=== PATIENT | female | born 1985 | race Caucasian/White ===

== ENCOUNTER 2018-04-21 17:29 | Inpatient (IN) | payer OTHER ==
[2018-04-21] MEDS ORDERED: Sodium Chloride 0.9% 2.5 ML Syringe FLUSH PRN (17:56)
[2018-04-21] MEDS ORDERED: Nalbuphine 10 MG/1 ML Vial IVPUSH PRN (17:56)
[2018-04-21] MEDS ORDERED: Butorphanol 1 MG/ML SDV IVPUSH PRN (17:56)
[2018-04-21] MEDS ORDERED: Misoprostol 200 MCG Tab PO PRN (17:56)
[2018-04-21] MEDS ORDERED: Tranexamic Acid 1,000 MG in Sodium Chloride 0.9% 100 ML IV PRN (17:56)
[2018-04-21] MEDS ORDERED: Lidocaine 1% 50 ML MDV INJECT PRN (17:56)
[2018-04-21] MEDS ORDERED: Carboprost Tromethamine 250 MCG/1 ML Amp IM PRN (17:56)
[2018-04-21] MEDS ORDERED: Methylergonovine 0.2 MG/1 ML Amp IM PRN (17:56)
[2018-04-21] MEDS ORDERED: Water For Irrigation,Sterile 1,000 ML Container IRR PRN (17:56)
[2018-04-21] MEDS ORDERED: Sodium Chloride 0.9% 10 ML Syringe FLUSH PRN (17:56)
[2018-04-21] MEDS ORDERED: Lactated Ringers 1,000 ML IV SCH (18:00)
[2018-04-21] MEDS ORDERED: Oxytocin/0.9 % Sodium Chloride 30 UNIT/500 ML BAG IV SCH (18:00)
[2018-04-21] MEDS ORDERED: Simethicone 80 MG Tab.Chew PO PRN (20:05)
[2018-04-21] MEDS ORDERED: Bisacodyl 10 MG Supp RECTAL PRN (20:05)
[2018-04-21] MEDS ORDERED: Ibuprofen 400 MG Tab PO PRN (20:05)
[2018-04-21] MEDS ORDERED: Aluminum Hydroxide/Magnesium Hydroxide/Simethicone Susp 30 ML Cup PO PRN (20:05)
[2018-04-21] MEDS ORDERED: Benzocaine/Menthol 20%-0.5% Spray 78 GM Cannister TOP PRN (20:05)
[2018-04-21] MEDS ORDERED: oxyCODONE 5 MG Tab PO PRN (20:05)
[2018-04-21] MEDS ORDERED: Ibuprofen 800 MG Tab PO PRN (20:05)
[2018-04-21] MEDS ORDERED: Docusate Sodium 100 MG Cap PO PRN (20:05)
[2018-04-21] MEDS ORDERED: Acetaminophen 500 MG Tab PO PRN ×2 (20:05)
[2018-04-21] MEDS ORDERED: Witch Hazel Medicated Pads 40/Jar TOP PRN (20:05)
[2018-04-21] MEDS ORDERED: Lanolin 100% Cream 7 GM Tube TOP PRN (20:05)
--- NOTE | 2018-04-22 06:59 | PCM.PNPP ---
- General Info Date of Service: 04/22/18 Functional Status: Reports: Pain Controlled, Tolerating Diet, Ambulating, Urinating - Review of Systems General: Denies: Fever, Weakness Cardiovascular: Denies: Chest Pain, Palpitations, Lightheadedness Gastrointestinal: Reports: Flatus. Denies: Abdominal Pain, Diarrhea, Nausea Genitourinary: Denies: Flank Pain Neurological: Reports: No Symptoms Psychiatric: Reports: No Symptoms - General Info Date of Service: 04/22/18 - Patient Data Vital Signs - Most Recent: Last Vital Signs Temp 36.4 C 04/22/18 04:00 Pulse 85 04/22/18 04:00 Resp 16 04/22/18 04:00 BP 121/65 04/22/18 04:00 Pulse Ox 95 04/22/18 04:00 Weight - Most Recent: 90.718 kg Lab Results - Last 24 Hours: Laboratory Results - last 24 hr 04/21/18 04/21/18 04/22/18 Range/Units 18:07 18:07 04:45 WBC 28.75 H (4.0-11.0) K/uL RBC 4.42 (4.30-5.90) M/uL Hgb 14.5 12.7 (12.0-16.0) g/dL Hct 39.5 35.8 L (36.0-46.0) % MCV 89.4 (80.0-98.0) fL MCH 32.8 H (27.0-32.0) pg MCHC 36.7 (31.0-37.0) g/dL RDW Std Deviation 43.1 (28.0-62.0) fl RDW Coeff of [place] 13 (11.0-15.0) % Plt Count 209 (150-400) K/uL MPV 9.40 (7.40-12.00) fL Nucleated RBC % 0.0 /100WBC Nucleated RBCs # 0 K/uL Blood Type A POSITIVE Antibody Screen NEGATIVE Med Orders - Current: Current Medications Acetaminophen (Tylenol Extra Strength) 500 mg PO Q4H PRN PRN Reason: Pain Acetaminophen (Tylenol Extra Strength) 1,000 mg PO Q4H PRN PRN Reason: Pain Al Hydroxide/Mg Hydroxide (Mag-Al Plus) 30 ml PO Q8H PRN PRN Reason: Heartburn Benzocaine/Menthol (Dermoplast Pain Relief 20%-0.5% [place]) 78 gm TOP ASDIRECTED PRN PRN Reason: Perineal Comfort Measure Bisacodyl (Dulcolax) 10 mg RECTAL .ONCE PRN PRN Reason: Constipation Carboprost Tromethamine (Hemabate Ds) 250 mcg IM ASDIRECTED PRN PRN Reason: Post Hemorrhage Docusate Sodium (Colace) 100 mg PO BID PRN PRN Reason: Constipation Emollient Ointment (Lansinoh Hpa) 0 gm TOP ASDIRECTED PRN PRN Reason: Sore Nipples Lactated Ringer's (Ringers, Lactated) 1,000 mls @ 150 mls/hr IV ASDIRECTED FLORINDA Oxytocin/Sodium Chloride (Oxytocin 30 Unit/500 Ml-Ns) 30 unit in 500 mls @ 500 mls/hr IV TITRATE FLORINDA Tranexamic Acid 1,000 mg/ (Sodium Chloride) 110 mls @ 660 mls/hr IV ONETIME PRN PRN Reason: Bleeding Ibuprofen (Motrin) 400 mg PO Q4H PRN PRN Reason: Pain Ibuprofen (Motrin) 800 mg PO Q6H PRN PRN Reason: Pain Last Admin: 04/21/18 20:21 Dose: 800 mg Lidocaine HCl (Xylocaine 1%) 50 ml INJECT .ONCE PRN PRN Reason: Laceration repair Last Admin: 04/21/18 19:47 Dose: 50 ml Methylergonovine Maleate (Methergine) 0.2 mg IM ASDIRECTED PRN PRN Reason: Post Hemorrhage Oxycodone HCl (Oxycodone) 5 mg PO Q2H PRN PRN Reason: Pain Simethicone (Simethicone) 80 mg PO Q4H PRN PRN Reason: Gas Sodium Chloride (Saline Flush) 10 ml FLUSH ASDIRECTED PRN PRN Reason: Keep Vein Open Sodium Chloride (Saline Flush) 2.5 ml FLUSH ASDIRECTED PRN PRN Reason: Keep Vein Open Sterile Water (Sterile Water For Irrigation) 1,000 ml IRR ASDIRECTED PRN PRN Reason: delivery Last Admin: 04/21/18 19:47 Dose: 1,000 ml Witch Diana (Tucks) 1 pad TOP ASDIRECTED PRN PRN Reason: comfort care Discontinued Medications Butorphanol Tartrate (Stadol) 1 mg IVPUSH Q1H PRN PRN Reason: Pain Misoprostol (Cytotec) 200 mcg PO .ONCE PRN PRN Reason: Post Hemorrhage Nalbuphine HCl (Nubain) 10 mg IVPUSH Q1H PRN PRN Reason: Pain (severe 7-10) - Interaction Support Person: , Sister - Recovery Exam Fundal Tone: Firm Fundal Level: 1 Fingerbreadths Below Umbilicus Fundal Placement: Midline Lochia Amount: Small Lochia Color: Rubra/Red Perineum Description: Intact, Minimal Bruising/Swelling Episiotomy/Laceration: Approximated Bladder Status: Voiding Urinary Elimination: Voided - Exam General: Alert, Oriented Lungs: Normal Respiratory Effort Cardiovascular: Regular Rate, Regular Rhythm GI/Abdominal Exam: Normal Bowel Sounds, Soft, Non-Tender Skin: Warm, Dry, Intact Psy/Mental Status: Alert, Normal Affect - Problem List & Annotations (1) Vaginal delivery SNOMED Code(s): 351475881 Code(s): O80 - ENCOUNTER FOR FULL-TERM UNCOMPLICATED DELIVERY Status: Acute Current Visit: Yes - Problem List Review Problem List Initiated/Reviewed/Updated: Yes - My Orders Last 24 Hours: My Active Orders 04/21/18 17:56 Patient Status [ADT] Routine Heart Tones [RC] CONTINUOUS Non Stress Test [RC] PER UNIT ROUTINE Vaginal Exam [RC] PRN Vital Signs [RC] PER UNIT ROUTINE Carboprost Tromethamine [Hemabate DS] 250 mcg IM ASDIRECTED PRN Lidocaine 1% [Xylocaine 1%] 50 ml INJECT .ONCE PRN Methylergonovine [Methergine] 0.2 mg IM ASDIRECTED PRN Sodium Chloride 0.9% [Saline Flush] 10 ml FLUSH ASDIRECTED PRN Sodium Chloride 0.9% [Saline Flush] 2.5 ml FLUSH ASDIRECTED PRN Tranexamic Acid [Cyklokapron] 1,000 mg Sodium Chloride 0.9% [Normal Saline] 100 ml IV ONETIME Water For Irrigation,Sterile [Sterile Water for Irrigation] 1,000 ml IRR ASDIRECTED PRN Peripheral IV Insertion Adult [OM.PC] Routine Resuscitation Status Routine 04/21/18 18:00 Lactated Ringers [Ringers, Lactated] 1,000 ml IV ASDIRECTED Oxytocin/0.9 % Sodium Chloride [Oxytocin 30 Unit/500 ML-NS] 30 unit in 500 ml IV TITRATE 04/21/18 20:05 Patient Status [ADT] Routine May Shower [RC] ASDIRECTED Up ad Carlyn [RC] ASDIRECTED Vital Signs [RC] PER UNIT ROUTINE Acetaminophen [Tylenol Extra Strength] 1,000 mg PO Q4H PRN Acetaminophen [Tylenol Extra Strength] 500 mg PO Q4H PRN Alum Hydrox/Mag Hydrox/Simeth [Mag-Al Plus] 30 ml PO Q8H PRN Benzocaine/Menthol [Dermoplast Pain Relief 20%-0.5% [place]] 78 gm TOP ASDIRECTED PRN Bisacodyl [Dulcolax] 10 mg RECTAL .ONCE PRN Docusate Sodium [Colace] 100 mg PO BID PRN Ibuprofen [Motrin] 400 mg PO Q4H PRN Ibuprofen [Motrin] 800 mg PO Q6H PRN Lanolin [Lansinoh HPA] See Dose Instructions TOP ASDIRECTED PRN Simethicone 80 mg PO Q4H PRN Witch Diana [Tucks] 1 pad TOP ASDIRECTED PRN oxyCODONE 5 mg PO Q2H PRN Assess Lochia [WOMSER] Per Unit Routine Assess Uterine Involution [WOMSER] Per Unit Routine Peripheral IV Discontinue [OM.PC] Routine 04/21/18 20:06 Ice Therapy [OM.PC] Per Unit Routine Perineal Care [OM.PC] Per Unit Routine Sitz Bath [OM.PC] Per Unit Routine 04/21/18 Dinner Regular Diet [DIET] - Assessment Assessment:: PPD 1 status post - Plan Plan:: Continue cares, working with . Infant is on an initial course of iv antibiotics. Patient was febrile x 1 directly after delivery last night and has remained afebrile since.
--- NOTE | 2018-04-22 09:33 | OR ---
SURGEON: Svetlana Pineda M.D. DATE OF PROCEDURE: 04/21/2018 PREOPERATIVE DIAGNOSES: 1. 38 and 4 week intrauterine . 2. Active labor. POSTOPERATIVE DIAGNOSES: 1. 38 and 4 week intrauterine . 2. Active labor. PROCEDURE PERFORMED: Spontaneous vaginally first-degree midline laceration repaired. ANESTHESIA: Local. ESTIMATED BLOOD LOSS: 300 mL. FINDINGS: Term female, score 7 at 1 minute, eight at 5 minute. Weight of 3440 g. Spontaneous delivery, intact placenta, 3-vessel cord. DISPOSITION: to nursery, mom in LDRP, stable. PROCEDURE DETAILS: Bette is a 32-year-old, G1, P0, at 38 and 4 weeks' gestational age, who presents with regular contractions since noon and leakage of large amount of clear fluid at 4:38 p.m. Upon presentation to Labor and Delivery, she was found to be 7 cm, regina every 1 to 3 minutes and breathing through her contractions. She quickly progressed to complete, including the urge to push, called for delivery. Upon my arrival, the patient was placed in modified dorsal position, prepped in the usual aseptic manner and began pushing effort and pushed readily. She was already a +3 station. She pushed to +4 station and was able to deliver 's head atraumatically, spontaneously, followed by anterior shoulder push, remaining body without difficulty. The 's oropharynx and nares bulb suctioned. Cord clamped x2 and cut. was handed off to her mother, attending nursing staff at her side. Cord arterial, cord venous, cord blood samples were obtained. Light pressure was applied while the placenta was delivered spontaneously intact. Vigorous fundal uterine massage was then applied while 30 units of Pitocin was delivered in 500 mL of fluid. Upon inspection of cervix vaginal sidewall, and perineum, there was found to be a first-degree left labial and first-degree midline laceration that was repaired using 3-0 Polysorb in the usual fashion. After prepping the regions with 1% lidocaine, total approximately 12 mL of 1% lidocaine was utilized. The patient tolerated the repair well. Hemostasis appeared evident. Sponge count and needle counts were correct. The patient remained in LDRP, to nursery. After placenta was delivered, the patient's temperature was 101.3. We will dose her with Motrin and monitor this. This is the first fever she has had. ZA / JESUS /[id number]
--- NOTE | 2018-04-23 17:00 | PCM.PNPP ---
- General Info Date of Service: 04/23/18 Functional Status: Reports: Pain Controlled, Tolerating Diet, Ambulating, Urinating - Review of Systems General: Reports: No Symptoms HEENT: Reports: No Symptoms Pulmonary: Reports: No Symptoms Cardiovascular: Reports: No Symptoms Gastrointestinal: Reports: No Symptoms Genitourinary: Reports: No Symptoms Musculoskeletal: Reports: No Symptoms Skin: Reports: No Symptoms Neurological: Reports: No Symptoms Psychiatric: Reports: No Symptoms - General Info Date of Service: 04/23/18 - Patient Data Vital Signs - Most Recent: Last Vital Signs Temp 37.4 C 04/23/18 15:15 Pulse 92 04/23/18 15:15 Resp 15 04/23/18 15:15 BP 125/87 04/23/18 15:15 Pulse Ox 97 04/23/18 15:15 Weight - Most Recent: 90.718 kg Med Orders - Current: Current Medications Acetaminophen (Tylenol Extra Strength) 500 mg PO Q4H PRN PRN Reason: Pain Acetaminophen (Tylenol Extra Strength) 1,000 mg PO Q4H PRN PRN Reason: Pain Al Hydroxide/Mg Hydroxide (Mag-Al Plus) 30 ml PO Q8H PRN PRN Reason: Heartburn Benzocaine/Menthol (Dermoplast Pain Relief 20%-0.5% [place]) 78 gm TOP ASDIRECTED PRN PRN Reason: Perineal Comfort Measure Last Admin: 04/22/18 11:03 Dose: 1 canister Bisacodyl (Dulcolax) 10 mg RECTAL .ONCE PRN PRN Reason: Constipation Carboprost Tromethamine (Hemabate Ds) 250 mcg IM ASDIRECTED PRN PRN Reason: Post Hemorrhage Docusate Sodium (Colace) 100 mg PO BID PRN PRN Reason: Constipation Emollient Ointment (Lansinoh Hpa) 0 gm TOP ASDIRECTED PRN PRN Reason: Sore Nipples Lactated Ringer's (Ringers, Lactated) 1,000 mls @ 150 mls/hr IV ASDIRECTED FLORINDA Oxytocin/Sodium Chloride (Oxytocin 30 Unit/500 Ml-Ns) 30 unit in 500 mls @ 500 mls/hr IV TITRATE FLORINDA Tranexamic Acid 1,000 mg/ (Sodium Chloride) 110 mls @ 660 mls/hr IV ONETIME PRN PRN Reason: Bleeding Ibuprofen (Motrin) 400 mg PO Q4H PRN PRN Reason: Pain Ibuprofen (Motrin) 800 mg PO Q6H PRN PRN Reason: Pain Last Admin: 04/21/18 20:21 Dose: 800 mg Lidocaine HCl (Xylocaine 1%) 50 ml INJECT .ONCE PRN PRN Reason: Laceration repair Last Admin: 04/21/18 19:47 Dose: 50 ml Methylergonovine Maleate (Methergine) 0.2 mg IM ASDIRECTED PRN PRN Reason: Post Hemorrhage Oxycodone HCl (Oxycodone) 5 mg PO Q2H PRN PRN Reason: Pain Simethicone (Simethicone) 80 mg PO Q4H PRN PRN Reason: Gas Sodium Chloride (Saline Flush) 10 ml FLUSH ASDIRECTED PRN PRN Reason: Keep Vein Open Sodium Chloride (Saline Flush) 2.5 ml FLUSH ASDIRECTED PRN PRN Reason: Keep Vein Open Sterile Water (Sterile Water For Irrigation) 1,000 ml IRR ASDIRECTED PRN PRN Reason: delivery Last Admin: 04/21/18 19:47 Dose: 1,000 ml Witch Diana (Tucks) 1 pad TOP ASDIRECTED PRN PRN Reason: comfort care Discontinued Medications Butorphanol Tartrate (Stadol) 1 mg IVPUSH Q1H PRN PRN Reason: Pain Misoprostol (Cytotec) 200 mcg PO .ONCE PRN PRN Reason: Post Hemorrhage Nalbuphine HCl (Nubain) 10 mg IVPUSH Q1H PRN PRN Reason: Pain (severe 7-10) - Infant Interaction Disposition, : in Room with Family Infant Interaction: Holding Feeding: Breastfed Infant; Nursed Well Support Person: , Sister - Recovery Exam Fundal Tone: Firm Fundal Level: 2 Fingerbreadths Below Umbilicus Fundal Placement: Midline Lochia Amount: Small Lochia Color: Rubra/Red Perineum Description: Intact, Minimal Bruising/Swelling Other Perinuem Description: 1st degree laceration Episiotomy/Laceration: Approximated Bladder Status: Palpable Urinary Elimination: Voided - Exam General: Alert, Oriented, Cooperative, No Acute Distress Lungs: Clear to Auscultation, Normal Respiratory Effort Cardiovascular: Regular Rate, Regular Rhythm, No Murmurs GI/Abdominal Exam: Soft, Non-Tender Extremities: Normal Range of Motion, Non-Tender Skin: Warm, Dry, Intact Wound/Incisions: Healing Well Neurological: No New Focal Deficit, Normal Gait, Normal Speech, Normal Tone Psy/Mental Status: Alert, Normal Affect, Normal Mood - Problem List & Annotations (1) Vaginal delivery SNOMED Code(s): 266023817 Code(s): O80 - ENCOUNTER FOR FULL-TERM UNCOMPLICATED DELIVERY Status: Acute Priority: High Current Visit: Yes - Problem List Review Problem List Initiated/Reviewed/Updated: Yes - Assessment Assessment:: PPD 1 status post PPD 2 status post - Plan Plan:: Continue cares, working with . is on an initial course of iv antibiotics. Patient was febrile x 1 directly after delivery last night and has remained afebrile since. P: Discharge home. will need to stay in due to TTN and antibiotics.
== END 2018-04-23 19:05 | disposition home or self-care (01) | DRG 775 ==
LOC: MW.OBCHECK 17:29 → MW.OB 17:30 → MW.OBCHECK 17:56 → OBSVTOIN 19:29 → MW.OB 22:00
PROVIDERS: ADMIT Obstetrics & Gynecology; ATTEND Obstetrics & Gynecology
PROC: 10E0XZZ Delivery of Products of Conception, External Approach (ICD-10-PCS; principal; 2018-04-21)
PROC: 0HQ9XZZ Repair Perineum Skin, External Approach (ICD-10-PCS; 2018-04-21)
DX: O42.02 Full-term premature rupture of membranes, onset of labor within 24 hours of rupture (principal); O70.0 First degree perineal laceration during delivery; Z3A.38 38 weeks gestation of pregnancy; Z37.0 Single live birth
CPT/HCPCS: 36415; 59025; 59409; 85014; 85018; 85027; 86850; 86900; 86901; A9270-GY

== ENCOUNTER 2020-02-29 19:39 | Inpatient (IN) | payer OTHER ==
[2020-02-29] MEDS ORDERED: Sodium Chloride 0.9% 10 ML Syringe FLUSH PRN (20:41)
[2020-02-29] MEDS ORDERED: Nalbuphine 10 MG/1 ML Vial IVPUSH PRN (20:41)
[2020-02-29] MEDS ORDERED: Misoprostol 200 MCG Tab PO PRN (20:41)
[2020-02-29] MEDS ORDERED: Water For Irrigation,Sterile 1,000 ML Container IRR PRN (20:41)
[2020-02-29] MEDS ORDERED: Lidocaine 1% 50 ML MDV INJECT PRN (20:41)
[2020-02-29] MEDS ORDERED: Butorphanol 1 MG/ML SDV IVPUSH PRN (20:41)
[2020-02-29] MEDS ORDERED: Tranexamic Acid 1,000 MG in Sodium Chloride 0.9% 100 ML IV PRN ×2 (20:41→22:41)
[2020-02-29] MEDS ORDERED: Sodium Chloride 0.9% 10 ML SDV IV PRN (20:41)
[2020-02-29] MEDS ORDERED: Sodium Chloride 0.9% 2.5 ML Syringe FLUSH PRN (20:41)
[2020-02-29] MEDS ORDERED: Methylergonovine 0.2 MG/1 ML Amp IM PRN ×2 (20:41→22:41)
[2020-02-29] MEDS ORDERED: Carboprost Tromethamine 250 MCG/1 ML Amp IM PRN (20:41)
[2020-02-29] MEDS ORDERED: Lactated Ringers 1,000 ML IV SCH (20:45)
[2020-02-29] MEDS ORDERED: Oxytocin/0.9 % Sodium Chloride 30 UNIT/500 ML BAG IV SCH (20:45)
--- NOTE | 2020-02-29 22:38 | PCM.DEL ---
L & D Note - General Info Date of Service: 02/29/20 Mother's Due Date: 03/06/20 - Delivery Note Labor: Spontaneous Delivery Method: Spontaneous Vaginal Delivery-Single Delivery Mode: Spontaneous Presentation: Left Occiput Anterior (MARSHA) Nuchal Cord: None Prep: Other Anesthesia Type: None Anesthetic: Lidocaine (Xylocaine) 0.5% Plain Local Anesthetic Volume: 5cc Amniotic Fluid Description: Clear Episiotomy Type: None Laceration: 1st Degree Suture type: Vicryl Suture size: 3-0 Placenta: Intact, Spontaneous Cord: 3 Vessels Estimated Blood Loss: 200 Resuscitation Needed: No Talmage: Suctioned Score 1 min: 8 Score 5 min: 9 Delivery Comments (Free Text/Narrative):: Liveborn female 8/9 weight 3740 grams. - General Info Date of Service: 02/29/20 - Patient Data Weight - Most Recent: 98.883 kg Lab Results Last 24 Hours: Laboratory Results - last 24 hr 02/29/20 02/29/20 Range/Units 20:25 20:25 WBC 15.03 H (4.0-11.0) K/uL RBC 4.34 (4.30-5.90) M/uL Hgb 13.3 (12.0-16.0) g/dL Hct 39.0 (36.0-46.0) % MCV 89.9 (80.0-98.0) fL MCH 30.6 (27.0-32.0) pg MCHC 34.1 (31.0-37.0) g/dL RDW Std Deviation 43.2 (28.0-62.0) fl RDW Coeff of [place] 13 (11.0-15.0) % Plt Count 252 (150-400) K/uL MPV 9.60 (7.40-12.00) fL Nucleated RBC % 0.0 /100WBC Nucleated RBCs # 0 K/uL Blood Type A POSITIVE Antibody Screen NEGATIVE Med Orders - Current: Current Medications Butorphanol Tartrate (Stadol) 1 mg IVPUSH Q1H PRN PRN Reason: Pain Carboprost Tromethamine (Hemabate Ds) 250 mcg IM ASDIRECTED PRN PRN Reason: Post Hemorrhage Lactated Ringer's (Ringers, Lactated) 1,000 mls @ 150 mls/hr IV ASDIRECTED FLORINDA Last Admin: 02/29/20 20:30 Dose: 999 mls/hr Oxytocin/Sodium Chloride (Oxytocin 30 Unit/500 Ml-Ns) 30 unit in 500 mls @ 500 mls/hr IV TITRATE FLORINDA Tranexamic Acid 1,000 mg/ (Sodium Chloride) 110 mls @ 660 mls/hr IV ONETIME PRN PRN Reason: Bleeding Lidocaine HCl (Xylocaine 1%) 50 ml INJECT ONETIME PRN PRN Reason: Laceration repair Methylergonovine Maleate (Methergine) 0.2 mg IM ASDIRECTED PRN PRN Reason: Post Hemorrhage Misoprostol (Cytotec) 200 mcg PO ONETIME PRN PRN Reason: Post Hemorrhage Nalbuphine HCl (Nubain) 10 mg IVPUSH Q1H PRN PRN Reason: Pain (severe 7-10) Sodium Chloride (Saline Flush) 10 ml FLUSH ASDIRECTED PRN PRN Reason: Keep Vein Open Sodium Chloride (Saline Flush) 2.5 ml FLUSH ASDIRECTED PRN PRN Reason: Keep Vein Open Sodium Chloride (Normal Saline) 10 ml IV ASDIRECTED PRN PRN Reason: IV Use Sterile Water (Sterile Water For Irrigation) 1,000 ml IRR ASDIRECTED PRN PRN Reason: delivery - Problem List & Annotations (1) Vaginal delivery SNOMED Code(s): 060009962 Code(s): O80 - ENCOUNTER FOR FULL-TERM UNCOMPLICATED DELIVERY Status: Acute Priority: High Current Visit: No - Problem List Review Problem List Initiated/Reviewed/Updated: Yes - My Orders Last 24 Hours: My Active Orders 02/29/20 20:25 RPR (SYPHILIS SERO) W/ RFLX [REF] Routine 02/29/20 20:41 Patient Status [ADT] Routine Heart Tones [RC] CONTINUOUS Non Stress Test [RC] PER UNIT ROUTINE May Shower [RC] ASDIRECTED Notify Provider [RC] PRN Up ad Carlyn [RC] ASDIRECTED Vaginal Exam [RC] PRN Vital Signs [RC] PER UNIT ROUTINE Butorphanol [Stadol] 1 mg IVPUSH Q1H PRN Carboprost Tromethamine [Hemabate DS] 250 mcg IM ASDIRECTED PRN Lidocaine 1% [Xylocaine 1%] 50 ml INJECT ONETIME PRN Methylergonovine [Methergine] 0.2 mg IM ASDIRECTED PRN Nalbuphine [Nubain] 10 mg IVPUSH Q1H PRN Sodium Chloride 0.9% [Normal Saline] 10 ml IV ASDIRECTED PRN Sodium Chloride 0.9% [Saline Flush] 10 ml FLUSH ASDIRECTED PRN Sodium Chloride 0.9% [Saline Flush] 2.5 ml FLUSH ASDIRECTED PRN Tranexamic Acid [Cyklokapron] 1,000 mg Sodium Chloride 0.9% [Normal Saline] 100 ml IV ONETIME Water For Irrigation,Sterile [Sterile Water for Irrigation] 1,000 ml IRR ASDIRECTED PRN miSOPROStoL [Cytotec] 200 mcg PO ONETIME PRN Scalp Electrode [WOMSER] Per Unit Routine Peripheral IV Insertion Adult [OM.PC] Routine Resuscitation Status Routine 02/29/20 20:45 Lactated Ringers [Ringers, Lactated] 1,000 ml IV ASDIRECTED Oxytocin/0.9 % Sodium Chloride [Oxytocin 30 Unit/500 ML-NS] 30 unit in 500 ml IV TITRATE
[2020-02-29] MEDS ORDERED: Witch Hazel Medicated Pads 40/Jar TOP PRN (22:41)
[2020-02-29] MEDS ORDERED: Acetaminophen 500 MG Tab PO PRN ×2 (22:41)
[2020-02-29] MEDS ORDERED: Bisacodyl 10 MG Supp RECTAL PRN (22:41)
[2020-02-29] MEDS ORDERED: Ibuprofen 400 MG Tab PO PRN (22:41)
[2020-02-29] MEDS ORDERED: Lanolin 100% Cream 7 GM Tube TOP PRN (22:41)
[2020-02-29] MEDS ORDERED: Ibuprofen 800 MG Tab PO PRN (22:41)
[2020-02-29] MEDS ORDERED: Benzocaine/Menthol 20%-0.5% Spray 78 GM Cannister TOP PRN (22:41)
[2020-02-29] MEDS ORDERED: Docusate Sodium 100 MG Cap PO PRN (22:41)
--- NOTE | 2020-02-29 23:43 | OR ---
SURGEON: Merary Rascon M.D. DATE OF PROCEDURE: 02/29/2020 PREOPERATIVE DIAGNOSIS: A 39 and 1/7 weeks' intrauterine , active spontaneous labor. POSTOPERATIVE DIAGNOSES: A 39 and 1/7 weeks' intrauterine , active spontaneous labor. PROCEDURE: Term spontaneous vaginal delivery, repair of second-degree laceration. PRIMARY SURGEON: Merary Rascon M.D. ANESTHESIA: Local. ESTIMATED BLOOD LOSS: Less than 200 mL. FINDINGS: Liveborn female. score of 8 and 9, weighing 3740 g. Placenta spontaneous. Schultze intact with 3 vessels. Small second-degree perineal laceration repaired. COMPLICATIONS: None known. DISPOSITION: Mother and baby are in LDR in good condition. BRIEF HISTORY: This is a 34-year-old female. She is G2, P1-0-0-1. She presents at 39 and 1/7 weeks' gestation. She had spontaneous rupture of membranes with clear fluid at approximately 9 a.m. She presented 10 hours later with regular contractions, 5 cm, 80%, -1 station. She is known to be group B strep negative. She was afebrile. She had category 1 heart tones. She was admitted for labor management. She progressed to complete over the following 2 hours. DESCRIPTION OF PROCEDURE: With the patient in dorsal lithotomy position, the patient pushed over a 20- minute time period to a 5+ station, at which time the head was delivered spontaneously and atraumatically over the perineum with support with subsequent delivery of the 's shoulders and body without any difficulty. The infant was bulb suctioned by nose and mouth, and after the cord had ceased to pulsate, it was doubly clamped and cut. The infant was handed to the mother in the presence of the nurse attending delivery. The was a liveborn female, score of 8 and 9, weighing 3740 g. Cord blood was collected for cord ABGs as well as routine cord blood sampling. Pitocin was initiated after delivery of the to assist with delivery the placenta, which was delivered spontaneously. Schultze intact with 3 vessels. Upon inspection of the pelvis and perineum, there were no periurethral, vaginal sidewall, cervical, or rectal lacerations. There was a very small second-degree perineal laceration which was repaired after instilling 10 mL of 1% lidocaine into the tissue with 3-0 Vicryl using a running locked suture for the vaginal mucosa, a deep running suture for the perineum, and a subcuticular suture for the skin. Final sponge, needle, and instrument counts were correct. There were no known complications. Mother and baby are in LDR in good condition. KRYSTLE LEE /[id number]
--- NOTE | 2020-03-01 09:36 | PCM.PNPP ---
- General Info Date of Service: 03/01/20 Functional Status: Reports: Pain Controlled, Tolerating Diet, Ambulating, Urinating - Review of Systems General: Reports: No Symptoms HEENT: Reports: No Symptoms Pulmonary: Reports: No Symptoms Cardiovascular: Reports: No Symptoms Gastrointestinal: Reports: No Symptoms Genitourinary: Reports: No Symptoms Musculoskeletal: Reports: No Symptoms Skin: Reports: No Symptoms Neurological: Reports: No Symptoms Psychiatric: Reports: No Symptoms - Patient Data Vital Signs - Most Recent: Last Vital Signs Temp 36.1 C 03/01/20 08:00 Pulse 88 03/01/20 08:00 Resp 16 03/01/20 08:00 BP 133/65 03/01/20 08:00 Pulse Ox 96 03/01/20 08:00 Weight - Most Recent: 98.883 kg Lab Results - Last 24 Hours: Laboratory Results - last 24 hr 02/29/20 02/29/20 02/29/20 Range/Units 20:25 20:25 22:05 WBC 15.03 H (4.0-11.0) K/uL RBC 4.34 (4.30-5.90) M/uL Hgb 13.3 (12.0-16.0) g/dL Hct 39.0 (36.0-46.0) % MCV 89.9 (80.0-98.0) fL MCH 30.6 (27.0-32.0) pg MCHC 34.1 (31.0-37.0) g/dL RDW Std Deviation 43.2 (28.0-62.0) fl RDW Coeff of [place] 13 (11.0-15.0) % Plt Count 252 (150-400) K/uL MPV 9.60 (7.40-12.00) fL Nucleated RBC % 0.0 /100WBC Nucleated RBCs # 0 K/uL Cord ABG pH 7.220 (7.18-7.38) Cord ABG Base Excess -8 (-10--2) Cord VBG pH 7.345 (7.25-7.45) Cord VBG Base Excess -6 (-10--2) Blood Type A POSITIVE Antibody Screen NEGATIVE 03/01/20 Range/Units 06:05 WBC (4.0-11.0) K/uL RBC (4.30-5.90) M/uL Hgb 11.7 L (12.0-16.0) g/dL Hct 34.2 L (36.0-46.0) % MCV (80.0-98.0) fL MCH (27.0-32.0) pg MCHC (31.0-37.0) g/dL RDW Std Deviation (28.0-62.0) fl RDW Coeff of [place] (11.0-15.0) % Plt Count (150-400) K/uL MPV (7.40-12.00) fL Nucleated RBC % /100WBC Nucleated RBCs # K/uL Cord ABG pH (7.18-7.38) Cord ABG Base Excess (-10--2) Cord VBG pH (7.25-7.45) Cord VBG Base Excess (-10--2) Blood Type Antibody Screen Med Orders - Current: Current Medications Acetaminophen (Tylenol Extra Strength) 500 mg PO Q4H PRN PRN Reason: Pain Acetaminophen (Tylenol Extra Strength) 1,000 mg PO Q4H PRN PRN Reason: Pain Benzocaine/Menthol (Dermoplast Pain Relief 20%-0.5% [place]) 78 gm TOP ASDIRECTED PRN PRN Reason: Perineal Comfort Measure Last Admin: 03/01/20 01:12 Dose: 1 canister Bisacodyl (Dulcolax) 10 mg RECTAL ONETIME PRN PRN Reason: Constipation Docusate Sodium (Colace) 100 mg PO BID PRN PRN Reason: Constipation Emollient Ointment (Lansinoh Hpa) 0 gm TOP ASDIRECTED PRN PRN Reason: Sore Nipples Tranexamic Acid 1,000 mg/ (Sodium Chloride) 110 mls @ 660 mls/hr IV ONETIME PRN PRN Reason: Bleeding Ibuprofen (Motrin) 400 mg PO Q4H PRN PRN Reason: Pain Ibuprofen (Motrin) 800 mg PO Q6H PRN PRN Reason: Pain Methylergonovine Maleate (Methergine) 0.2 mg IM ONETIME PRN PRN Reason: Excessive Vaginal Bleeding Witch Diana (Tucks) 1 pad TOP ASDIRECTED PRN PRN Reason: comfort care Discontinued Medications Butorphanol Tartrate (Stadol) 1 mg IVPUSH Q1H PRN PRN Reason: Pain Carboprost Tromethamine (Hemabate Ds) 250 mcg IM ASDIRECTED PRN PRN Reason: Post Hemorrhage Lactated Ringer's (Ringers, Lactated) 1,000 mls @ 150 mls/hr IV ASDIRECTED [facility] Last Admin: 02/29/20 20:30 Dose: 999 mls/hr Oxytocin/Sodium Chloride (Oxytocin 30 Unit/500 Ml-Ns) 30 unit in 500 mls @ 500 mls/hr IV TITRATE [facility] Last Admin: 02/29/20 22:07 Dose: 500 mls/hr Tranexamic Acid 1,000 mg/ (Sodium Chloride) 110 mls @ 660 mls/hr IV ONETIME PRN PRN Reason: Bleeding Lidocaine HCl (Xylocaine 1%) 50 ml INJECT ONETIME PRN PRN Reason: Laceration repair Last Admin: 02/29/20 22:15 Dose: 10 ml Methylergonovine Maleate (Methergine) 0.2 mg IM ASDIRECTED PRN PRN Reason: Post Hemorrhage Misoprostol (Cytotec) 200 mcg PO ONETIME PRN PRN Reason: Post Hemorrhage Nalbuphine HCl (Nubain) 10 mg IVPUSH Q1H PRN PRN Reason: Pain (severe 7-10) Sodium Chloride (Saline Flush) 10 ml FLUSH ASDIRECTED PRN PRN Reason: Keep Vein Open Sodium Chloride (Saline Flush) 2.5 ml FLUSH ASDIRECTED PRN PRN Reason: Keep Vein Open Sodium Chloride (Normal Saline) 10 ml IV ASDIRECTED PRN PRN Reason: IV Use Sterile Water (Sterile Water For Irrigation) 1,000 ml IRR ASDIRECTED PRN PRN Reason: delivery Last Admin: 02/29/20 22:00 Dose: 1,000 ml - Infant Interaction Infant Disposition, : in Room with Family Interaction: Holding Infant Feeding: Bottle Fed Support Person: Other (see below) (no visitors due to Covid, partner may come in today) - Recovery Exam Fundal Tone: Firm Fundal Level: 1 Fingerbreadths Below Umbilicus Fundal Placement: Midline Lochia Amount: Small Lochia Color: Rubra/Red - Exam General: Alert, Oriented HEENT: Pupils Equal Neck: Supple Lungs: Normal Respiratory Effort GI/Abdominal Exam: Non-Tender, No Distention, No Mass Extremities: No: No Pedal Edema (trace) Skin: Warm, Dry, Intact Neurological: No New Focal Deficit Psy/Mental Status: Alert, Normal Affect, Normal Mood - Problem List & Annotations (1) Vaginal delivery SNOMED Code(s): 468918161 Code(s): O80 - ENCOUNTER FOR FULL-TERM UNCOMPLICATED DELIVERY Status: Acute Priority: High Current Visit: No - Problem List Review Problem List Initiated/Reviewed/Updated: Yes - My Orders Last 24 Hours: My Active Orders 02/29/20 20:25 RPR (SYPHILIS SERO) W/ RFLX [REF] Routine 02/29/20 20:41 Heart Tones [RC] CONTINUOUS Non Stress Test [RC] PER UNIT ROUTINE May Shower [RC] ASDIRECTED Notify Provider [RC] PRN Up ad Carlyn [RC] ASDIRECTED Vaginal Exam [RC] PRN Vital Signs [RC] PER UNIT ROUTINE 02/29/20 22:41 Acetaminophen [Tylenol Extra Strength] 1,000 mg PO Q4H PRN Acetaminophen [Tylenol Extra Strength] 500 mg PO Q4H PRN Benzocaine/Menthol [Dermoplast Pain Relief 20%-0.5% Innis] 78 gm TOP ASDIRECTED PRN Docusate Sodium [Colace] 100 mg PO BID PRN Ibuprofen [Motrin] 400 mg PO Q4H PRN Ibuprofen [Motrin] 800 mg PO Q6H PRN Lanolin [Lansinoh HPA] See Dose Instructions TOP ASDIRECTED PRN Methylergonovine [Methergine] 0.2 mg IM ONETIME PRN Tranexamic Acid [Cyklokapron] 1,000 mg Sodium Chloride 0.9% [Normal Saline] 100 ml IV ONETIME bisacodyL [Dulcolax] 10 mg RECTAL ONETIME PRN witch Diana [Tucks] 1 pad TOP ASDIRECTED PRN Resuscitation Status Routine 02/29/20 22:42 Patient Status [ADT] Routine May Shower [RC] ASDIRECTED Up ad Carlyn [RC] ASDIRECTED Vital Signs [RC] PER UNIT ROUTINE Assess Lochia [WOMSER] Per Unit Routine Assess Uterine Involution [WOMSER] Per Unit Routine Peripheral IV Discontinue [OM.PC] Routine 02/29/20 22:43 Perineal Care [OM.PC] Per Unit Routine 03/01/20 Breakfast Regular Diet [DIET] - Assessment Assessment:: PPD#1 after , stable, minimal lochia. Would like to go home at 24 hours to minimize potential COVID exposure. - Plan Plan:: discharge instructions reviewed.
--- NOTE | 2020-03-01 17:42 | PCM.PNPP ---
- General Info Date of Service: 03/01/20 Subjective Update: 34yo yo P2 s/p PPD1 She is ambulating, voiding , and tolerating regular diet , Functional Status: Reports: Pain Controlled, Tolerating Diet, Ambulating, Urinating - Review of Systems General: Reports: No Symptoms HEENT: Reports: No Symptoms Pulmonary: Reports: No Symptoms Cardiovascular: Reports: No Symptoms Gastrointestinal: Reports: No Symptoms Genitourinary: Reports: No Symptoms Musculoskeletal: Reports: No Symptoms Skin: Reports: No Symptoms Neurological: Reports: No Symptoms Psychiatric: Reports: No Symptoms - General Info Date of Service: 03/01/20 - Patient Data Vital Signs - Most Recent: Last Vital Signs Temp 36.8 C 03/01/20 16:00 Pulse 75 03/01/20 16:00 Resp 16 03/01/20 16:00 BP 109/62 03/01/20 16:00 Pulse Ox 95 03/01/20 16:00 Weight - Most Recent: 98.883 kg Lab Results - Last 24 Hours: Laboratory Results - last 24 hr 02/29/20 02/29/20 02/29/20 Range/Units 20:25 20:25 22:05 WBC 15.03 H (4.0-11.0) K/uL RBC 4.34 (4.30-5.90) M/uL Hgb 13.3 (12.0-16.0) g/dL Hct 39.0 (36.0-46.0) % MCV 89.9 (80.0-98.0) fL MCH 30.6 (27.0-32.0) pg MCHC 34.1 (31.0-37.0) g/dL RDW Std Deviation 43.2 (28.0-62.0) fl RDW Coeff of [place] 13 (11.0-15.0) % Plt Count 252 (150-400) K/uL MPV 9.60 (7.40-12.00) fL Nucleated RBC % 0.0 /100WBC Nucleated RBCs # 0 K/uL Cord ABG pH 7.220 (7.18-7.38) Cord ABG Base Excess -8 (-10--2) Cord VBG pH 7.345 (7.25-7.45) Cord VBG Base Excess -6 (-10--2) Blood Type A POSITIVE Antibody Screen NEGATIVE 03/01/20 Range/Units 06:05 WBC (4.0-11.0) K/uL RBC (4.30-5.90) M/uL Hgb 11.7 L (12.0-16.0) g/dL Hct 34.2 L (36.0-46.0) % MCV (80.0-98.0) fL MCH (27.0-32.0) pg MCHC (31.0-37.0) g/dL RDW Std Deviation (28.0-62.0) fl RDW Coeff of [place] (11.0-15.0) % Plt Count (150-400) K/uL MPV (7.40-12.00) fL Nucleated RBC % /100WBC Nucleated RBCs # K/uL Cord ABG pH (7.18-7.38) Cord ABG Base Excess (-10--2) Cord VBG pH (7.25-7.45) Cord VBG Base Excess (-10--2) Blood Type Antibody Screen Med Orders - Current: Current Medications Acetaminophen (Tylenol Extra Strength) 500 mg PO Q4H PRN PRN Reason: Pain Acetaminophen (Tylenol Extra Strength) 1,000 mg PO Q4H PRN PRN Reason: Pain Benzocaine/Menthol (Dermoplast Pain Relief 20%-0.5% [place]) 78 gm TOP ASDIRECTED PRN PRN Reason: Perineal Comfort Measure Last Admin: 03/01/20 01:12 Dose: 1 canister Bisacodyl (Dulcolax) 10 mg RECTAL ONETIME PRN PRN Reason: Constipation Docusate Sodium (Colace) 100 mg PO BID PRN PRN Reason: Constipation Emollient Ointment (Lansinoh Hpa) 0 gm TOP ASDIRECTED PRN PRN Reason: Sore Nipples Tranexamic Acid 1,000 mg/ (Sodium Chloride) 110 mls @ 660 mls/hr IV ONETIME PRN PRN Reason: Bleeding Ibuprofen (Motrin) 400 mg PO Q4H PRN PRN Reason: Pain Ibuprofen (Motrin) 800 mg PO Q6H PRN PRN Reason: Pain Methylergonovine Maleate (Methergine) 0.2 mg IM ONETIME PRN PRN Reason: Excessive Vaginal Bleeding Witch Diana (Tucks) 1 pad TOP ASDIRECTED PRN PRN Reason: comfort care Discontinued Medications Butorphanol Tartrate (Stadol) 1 mg IVPUSH Q1H PRN PRN Reason: Pain Carboprost Tromethamine (Hemabate Ds) 250 mcg IM ASDIRECTED PRN PRN Reason: Post Hemorrhage Lactated Ringer's (Ringers, Lactated) 1,000 mls @ 150 mls/hr IV ASDIRECTED [facility] Last Admin: 02/29/20 20:30 Dose: 999 mls/hr Oxytocin/Sodium Chloride (Oxytocin 30 Unit/500 Ml-Ns) 30 unit in 500 mls @ 500 mls/hr IV TITRATE [facility] Last Admin: 02/29/20 22:07 Dose: 500 mls/hr Tranexamic Acid 1,000 mg/ (Sodium Chloride) 110 mls @ 660 mls/hr IV ONETIME PRN PRN Reason: Bleeding Lidocaine HCl (Xylocaine 1%) 50 ml INJECT ONETIME PRN PRN Reason: Laceration repair Last Admin: 02/29/20 22:15 Dose: 10 ml Methylergonovine Maleate (Methergine) 0.2 mg IM ASDIRECTED PRN PRN Reason: Post Hemorrhage Misoprostol (Cytotec) 200 mcg PO ONETIME PRN PRN Reason: Post Hemorrhage Nalbuphine HCl (Nubain) 10 mg IVPUSH Q1H PRN PRN Reason: Pain (severe 7-10) Sodium Chloride (Saline Flush) 10 ml FLUSH ASDIRECTED PRN PRN Reason: Keep Vein Open Sodium Chloride (Saline Flush) 2.5 ml FLUSH ASDIRECTED PRN PRN Reason: Keep Vein Open Sodium Chloride (Normal Saline) 10 ml IV ASDIRECTED PRN PRN Reason: IV Use Sterile Water (Sterile Water For Irrigation) 1,000 ml IRR ASDIRECTED PRN PRN Reason: delivery Last Admin: 02/29/20 22:00 Dose: 1,000 ml - Interaction Disposition, : in Room with Family Infant Interaction: Holding Infant Feeding: Bottle Fed Infant Support Person: Other (see below) (no visitors due to Covid, partner may come in today) - Recovery Exam Fundal Tone: Firm Fundal Level: 1 Fingerbreadths Below Umbilicus Fundal Placement: Midline Lochia Amount: Small Lochia Color: Rubra/Red - Exam General: Alert HEENT: Pupils Equal Neck: Supple Lungs: Clear to Auscultation Cardiovascular: Regular Rate, Regular Rhythm GI/Abdominal Exam: Normal Bowel Sounds Extremities: Normal Inspection Neurological: No New Focal Deficit Psy/Mental Status: Alert - Problem List & Annotations (1) Vaginal delivery SNOMED Code(s): 305587851 Code(s): O80 - ENCOUNTER FOR FULL-TERM UNCOMPLICATED DELIVERY Status: Acute Priority: High Current Visit: No - Problem List Review Problem List Initiated/Reviewed/Updated: No - Assessment Assessment:: PPD#1 after , stable, minimal lochia , - Plan Plan:: discharge instructions reviewed.
== END 2020-03-01 23:57 | disposition home or self-care (01) | DRG 807 ==
LOC: MW.OBCHECK 19:39 → MW.OB 19:39 → MW.OBCHECK 20:41 → MW.OB 20:41 → OBSVTOIN 22:05 → MW.OB 03-01 02:00
PROVIDERS: ADMIT Obstetrics & Gynecology; ATTEND Obstetrics & Gynecology
PROC: 10E0XZZ Delivery of Products of Conception, External Approach (ICD-10-PCS; principal; 2020-02-29)
PROC: 0KQM0ZZ Repair Perineum Muscle, Open Approach (ICD-10-PCS; 2020-02-29)
DX: O70.1 Second degree perineal laceration during delivery (principal); Z37.0 Single live birth; Z3A.39 39 weeks gestation of pregnancy
CPT/HCPCS: 36415; 59025; 59409; 82803; 85014; 85018; 85027; 86592; 86593; 86850; 86900; 86901; A9270-GY; J2001; J2590; J7120